=== PATIENT | male | born 1985 | race Caucasian/White ===

== ENCOUNTER 2023-09-26 22:12 | Emergency (ER) | payer SELFPAY ==
[~2023-09-26] VITALS: Ht 177.8 cm; Wt 140.0 kg
[2023-09-26 22:17] VITALS: O2SAT 98
[2023-09-26] MEDS ORDERED: DIPHENHYDRAMINE 50MG/ML VIAL IM ONE (22:45)
[2023-09-26] MEDS: HALOPERIDOL LACTATE 5MG/ML VIAL IM ONE (22:50)
[2023-09-26] MEDS: LORAZEPAM 2MG/ML INJ IM ONE (22:50)
[2023-09-26] MEDS: DIPHENHYDRAMINE 50MG/ML VIAL IM NR (22:50)
[2023-09-26 23:40] LABS: BASOPHILS % 0.6 % (0.0-2.0); EOSINOPHILS % 1.6 % (0.0-5.0); HEMATOCRIT. 44.9 % (42.0-52.0); HEMOGLOBIN. 15.1 g/dL (14.0-18.0); LYMPHOCYTES % 28.3 % (20.0-50.0); MEAN CORPUSCULAR HEMOGLOBIN 29.5 pg (28.0-32.0); MEAN CORPUSCULAR HGB CONC 33.6 g/dL (31.0-37.0); MEAN CORPUSCULAR VOLUME 87.8 fL (80.0-94.0); NEUTROPHILS % 63.5 % (40.0-76.0); PLATELET 273 x1000/uL (130-400); RED BLOOD CELL COUNT 5.12 mill/uL (4.7-6.1); RED CELL DISTRIBUTION WIDTH 15.4 % (11.6-14.6); WHITE BLOOD COUNT 7.9 x1000/uL (4.5-11.0)
[2023-09-26 23:43] LABS: CLARITY URINE CLEAR (CLEAR); COLOR URINE YELLOW (YELLOW); GLUCOSE URINE NEGATIVE (NEGATIVE); KETONES URINE NEGATIVE (NEGATIVE); LEUKOCYTE ESTERASE URINE NEGATIVE (NEGATIVE); NITRITE URINE NEGATIVE (NEGATIVE); OCCULT BLOOD URINE NEGATIVE (NEGATIVE); PH URINE 6.5 (4.5-8.0); PROTEIN URINE NEGATIVE (NEGATIVE); SPECIFIC GRAVITY URINE 1.003 (1.005-1.030); UROBILINOGEN URINE 0.2 E.U./dL (0.2-1.0)
[2023-09-26 23:49] LABS: CHLORIDE 110 mEq/L (98-107); POTASSIUM 3.7 mEq/L (3.5-5.1); SODIUM 143 mEq/L (136-145)
[2023-09-26 23:50] LABS: *AMPHETAMINES SCREEN URINE NEGATIVE (NEGATIVE); *BARBITURATES SCREEN URINE NEGATIVE (NEGATIVE); *BENZODIAZEPINES SCREEN URINE NEGATIVE (NEGATIVE); *COCAINE SCREEN URINE NEGATIVE (NEGATIVE); CALCIUM 9.3 mg/dL (8.7-10.4); CANNABINOID URINE SCREEN PRESUMPTIVE POSITIVE (NEGATIVE); CARBON DIOXIDE 25 mEq/L (21-32); METHADONE URINE SCREEN NEGATIVE (NEGATIVE); OPIATES URINE SCREEN NEGATIVE (NEGATIVE); PHENCYCLIDINE URINE SCREEN NEGATIVE (NEGATIVE)
[2023-09-26 23:51] LABS: ECSTASY MDMA SCREEN URINE NEGATIVE (NEGATIVE)
[2023-09-26 23:55] LABS: GLUCOSE 107 mg/dL (70-105)
[2023-09-26 23:56] LABS: ETHANOL BLOOD 240 mg/dL (<10)
[2023-09-27 00:20] LABS: UREA NITROGEN BLOOD < 5 mg/dL (9-23)
[2023-09-27 06:21] VITALS: TEMP 98
[2023-09-27 13:38] VITALS: BP 115/66; PULSE 70; RESP 15
== END 2023-09-27 14:29 | disposition home or self-care (01) ==
LOC: ER 22:12
DX: F32.9 Major depressive disorder, single episode, unspecified (principal); F17.210 Nicotine dependence, cigarettes, uncomplicated; F12.10 Cannabis abuse, uncomplicated; Z20.822 Contact with and (suspected) exposure to COVID-19
CPT/HCPCS: 80305; 80048; 81003; 80307; 80329; 80320; 85025; 36415; 96372; 99285; 87426; J1200; J1630; J2060; G0480